=== PATIENT | female | born 1990 | race Caucasian/White ===

== ENCOUNTER 2017-03-27 19:48 | Inpatient (IN) | payer OTHER ==
[~2017-03-27] VITALS: Ht 162.6 cm; Wt 72.0 kg
[2017-03-27] MEDS ORDERED: ONDANSETRON 2MG/ML, 2ML ONE (20:10)
[2017-03-27] MEDS ORDERED: FAMOTIDINE 20 MG/2 ML ONE (20:10)
[2017-03-27 20:18] LABS: HEMATOCRIT 42.9 % (34.6-47.8); HEMOGLOBIN 14.5 g/dL (11.7-16.4); WHITE BLOOD COUNT 11.6 x10^3/uL (3.4-10)
[2017-03-27 20:28] LABS: ASPARTATE AMINO TRANSFERASE 10 U/L (15-37); BLOOD UREA NITROGEN 14 mg/dL (7-18)
[2017-03-27] MEDS ORDERED: ONDANSETRON 2MG/ML, 2ML IVPush ONE (20:30)
[2017-03-27] MEDS ORDERED: SODIUM CHLORIDE 0.9% 1,000ML IVBOLUS ONE (20:30)
[2017-03-27] MEDS ORDERED: SODIUM CHLORIDE FLUSH 10ML SYR IVF ONE (20:30)
[2017-03-27] MEDS ORDERED: FAMOTIDINE 20 MG/2 ML IVP ONE (20:30)
[2017-03-27 21:39] LABS: PATH.CAST-FLAG NOT PRESENT; SPERM-FLAG NOT PRESENT; SRC-FLAG NOT PRESENT; XTAL-FLAG NOT PRESENT; YLC-FLAG NOT PRESENT
[2017-03-27] MEDS ORDERED: HYDROmorphone 1 MG/ML, 1ML ONE (22:22)
[2017-03-27] MEDS ORDERED: ONDANSETRON 2MG/ML, 2ML IVPush PRN (22:30)
[2017-03-27] MEDS ORDERED: HYDROmorphone 1 MG/ML, 1ML IVPush PRN ×2 (22:30)
[2017-03-27] MEDS ORDERED: SODIUM CHLORIDE FLUSH 10ML SYR IVF PRN (22:30)
[2017-03-27 23:26] VITALS: BP 128/92
[2017-03-27 23:39] VITALS: BP 121/81
[2017-03-28 02:26] VITALS: BP 116/78
[2017-03-28 06:48] VITALS: BP 108/64
[2017-03-28] MEDS ORDERED: HYDROmorphone 1 MG/ML, 1ML ONE ×4 (06:51→20:12)
[2017-03-28] MEDS: LACTATED RINGERS 1,000 ML IV SCH ×2 (06:55→18:53)
[2017-03-28] MEDS: HYDROmorphone 2 MG/ML, 1ML IVPush PRN ×4 (06:55→20:17)
[2017-03-28] MEDS ORDERED: ONDANSETRON 2MG/ML, 2ML IVPush PRN ×3 (07:00→18:30)
[2017-03-28 12:12] VITALS: BP 114/79
[2017-03-28] MEDS ORDERED: EPINEPHRINE 1 MG/ML, 1ML ONE (15:25)
[2017-03-28] MEDS ORDERED: BUPIVACAINE/PF 0.5% ONE (15:25)
[2017-03-28] MEDS ORDERED: FENTANYL PF 100 MCG/2ML ONE ×3 (15:31→17:19)
[2017-03-28] MEDS ORDERED: MIDAZOLAM 1 MG/ML, 2ML ONE (15:32)
[2017-03-28] MEDS ORDERED: ONDANSETRON 2MG/ML, 2ML ONE ×3 (15:32→17:19)
[2017-03-28] MEDS ORDERED: ROCURONIUM 10 MG/ML ONE (15:32)
[2017-03-28] MEDS ORDERED: DEXAMETHASONE 4 MG/ML, 1ML ONE ×2 (15:32→15:37)
[2017-03-28] MEDS ORDERED: PROPOFOL 10 MG/ML, 20ML ONE (15:32)
[2017-03-28] MEDS ORDERED: SUCCINYLCHOLINE 20 MG/ML, 10ML ONE (15:32)
[2017-03-28] MEDS ORDERED: CEFOTETAN PMX 1GM/50ML 50 ML ONE (16:18)
[2017-03-28] MEDS ORDERED: KETOROLAC 30 MG/1 ML ONE (16:21)
[2017-03-28] MEDS ORDERED: ACETAMINOPHEN 325 MG TABLET PO PRN (16:30)
[2017-03-28] MEDS ORDERED: LABETALOL 5MG/ML, 20ML IV PRN (16:30)
[2017-03-28] MEDS ORDERED: MIDAZOLAM 1 MG/ML, 5ML IV PRN (16:30)
[2017-03-28] MEDS ORDERED: hydrALAzine 20 MG/ML, 1ML IV PRN (16:30)
[2017-03-28] MEDS ORDERED: OXYcodone 5 MG/5 ML ORAL.SOL UDC PO PRN (16:30)
[2017-03-28] MEDS ORDERED: FENTANYL PF 100 MCG/2ML IV PRN (16:30)
[2017-03-28] MEDS ORDERED: HYDROmorphone 1 MG/ML, 1ML IV PRN (16:30)
[2017-03-28] MEDS ORDERED: PROMETHAZINE 25 MG/ML, 1ML IV PRN (16:30)
[2017-03-28] MEDS ORDERED: MEPERIDINE/PF 25MG/0.5ML IVPush PRN (16:30)
[2017-03-28] MEDS ORDERED: ALBUTEROL SULFATE 2.5 MG/3 ML NPPB PRN (16:30)
[2017-03-28] MEDS ORDERED: GLYCOPYRROLATE 0.4 MG/2 ML, 2ML ONE (16:38)
[2017-03-28] MEDS ORDERED: NEOSTIGMINE 1 MG/ML, 10ML ONE (16:38)
[2017-03-28] MEDS ORDERED: NALOXONE 0.4 MG/ML, 1ML ONE (16:42)
[2017-03-28] MEDS ORDERED: OXYcodone/APAP 5/325MG TABLET PO PRN (18:30)
[2017-03-28 18:45] VITALS: BP 112/72
[2017-03-28] MEDS ORDERED: FLU VACC QS2017-18 (36MOS+) UP/PF 0.5 ML IM-VACC ONE (19:30)
[2017-03-28] MEDS ORDERED: PNEUMOCOCCAL 23 VACCINE IM-VACC ONE (19:30)
[2017-03-28 19:54] VITALS: BP 113/63
[2017-03-28] MEDS ORDERED: IBUP-1222 PO (20:22)
[2017-03-28] MEDS ORDERED: OXYC-306 PO (20:23)
== END 2017-03-28 21:28 | disposition home or self-care (01) | DRG 419 ==
LOC: ED 21:52 → EDIP 22:21 → 4NOR 23:21
PROVIDERS: ADMIT Surgery; ATTEND Surgery
PROC: 0FT44ZZ Resection of Gallbladder, Percutaneous Endoscopic Approach (ICD-10-PCS; principal; 2017-03-28 16:00)
DX: K80.01 Calculus of gallbladder with acute cholecystitis with obstruction (principal); M54.9 Dorsalgia, unspecified
CPT/HCPCS: 36415; 76700; 80053; 81001; 83690; 84703; 85025; 88304; 90686; 90732; 93005; 96361; 96374; 96375; J0171; J1100; J1170; J1885; J2250; J2310; J2405; J2704; J2710; J3010; J3490; J0330; J7030; J7120; S0028; S0074

== ENCOUNTER 2017-10-25 18:56 | Outpatient (CLI) | payer MEDICAID, OTHER ==
[~2017-10-25 18:56] MED LIST: IBUP-1222 PO; OXYC-306 PO
[2017-10-25 20:11] LABS: BASOPHILS # (AUTO) 0.02 x10^3/uL (0-0.1); BASOPHILS % (AUTO) 0 % (0-1); EOSINOPHILS # (AUTO) 0.33 x10^3/uL (0-0.4); EOSINOPHILS % (AUTO) 3 % (1-7); LYMPHOCYTES # (AUTO) 1.84 x10^3/uL (1-3.4); LYMPHOCYTES % (AUTO) 17 % (22-44); MD NO; MEAN CORPUSCULAR HEMOGLOBIN 31.2 pg (27.0-34.8); MEAN CORPUSCULAR HGB CONC 33.6 g/dL (32.4-35.8); MEAN CORPUSCULAR VOLUME 92.7 fL (80-100); MONOCYTES # (AUTO) 0.62 x10^3/uL (0.2-0.8); MONOCYTES % (AUTO) 6 % (2-9); NEUTROPHILS # (AUTO) 7.97 x10^3/uL (1.8-6.8); NEUTROPHILS % (AUTO) 74 % (42-75); PLATELET COUNT 221 x10^3/uL (130-400); RED BLOOD COUNT 3.83 x10^6/uL (3.82-5.3); RED CELL DISTRIBUTION WIDTH 13.2 % (9.6-15.2)
[2017-10-25 20:13] LABS: MICROSCOPIC NOT IND
[2017-10-25 20:25] LABS: AMPHETAMINE SCREEN, URINE Negative (Negative); BARBITURATE SCREEN, URINE Negative (Negative); BENZODIAZEPINE SCREEN, URINE Negative (Negative); CANNABINOID SCREEN, URINE Negative (Negative); COCAINE SCREEN, URINE Negative (Negative); METHADONE SCREEN, URINE Negative (Negative); OPIATE SCREEN, URINE Negative (Negative)
== END 2017-10-25 22:10 | disposition home or self-care (01) ==
LOC: LDOP 18:56
PROVIDERS: ATTEND Obstetrics & Gynecology
DX: O99.89 Other specified diseases and conditions complicating pregnancy, childbirth and the puerperium (principal); Z3A.28 28 weeks gestation of pregnancy; R10.9 Unspecified abdominal pain
CPT/HCPCS: 36415; 59025; 76805; 80307; 81003; 85025; 86592; 86762; 86803; 86850; 86900; 87086; 87340; 87491; 87591; 87806; 89060; 99211; G0463; G0475; Q0114

== ENCOUNTER 2020-06-26 16:09 | Emergency (ER) | payer SELFPAY ==
[~2020-06-26] VITALS: Ht 160 cm; Wt 71.8 kg
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
--- NOTE | 2020-06-26 16:48 | NUR ---
PATIENT AMBULATED TO BATHROOM WITH STEADY GAIT FOR URINE SAMPLE.
[2020-06-26 16:52] LABS: BASOPHILS % (AUTO) 1 % (0-1); EOSINOPHILS % (AUTO) 4 % (1-7); LYMPHOCYTES % (AUTO) 22 % (22-44); MEAN CORPUSCULAR HEMOGLOBIN 31.6 pg (27.0-34.8); MEAN CORPUSCULAR HGB CONC 34.7 g/dL (32.4-35.8); MEAN PLATELET VOLUME 9.3 fL (7.4-10.4); MONOCYTES % (AUTO) 5 % (2-9); NEUTROPHILS % (AUTO) 69 % (42-75); PLATELET COUNT 233 x10^3/uL (130-400); RED BLOOD COUNT 4.47 x10^6/uL (3.82-5.3); RED CELL DISTRIBUTION WIDTH 13.1 % (9.6-15.2)
[2020-06-26 16:55] LABS: MD NO
--- NOTE | 2020-06-26 16:57 | NUR ---
URINE SAMPLE COLLECTED AND WALKED TO LAB.
[2020-06-26 17:03] LABS: ALBUMIN 3.2 g/dL (3.4-5.0); ANION GAP 5 mmol/L (5-15); CALCIUM 8.5 mg/dL (8.5-10.1); CHLORIDE 108 mmol/L (98-107); CREATININE 0.63 mg/dL (0.55-1.02)
[2020-06-26 17:10] LABS: MICROSCOPIC AUTO
[2020-06-26 17:20] LABS: ALANINE AMINOTRANSFERASE 19 U/L (12-78); ALKALINE PHOSPHATASE 59 U/L (45-117); BILIRUBIN,TOTAL 0.3 mg/dL (0.2-1.0); TOTAL PROTEIN 7.1 g/dL (6.4-8.2)
--- NOTE | 2020-06-26 17:42 | NUR ---
ER RESIDENT STUDENT UPDATED PATIENT ON POC.
[2020-06-26] MEDS ORDERED: ONDANSETRON ODT 8 MG PO ONE (18:30)
[2020-06-26] MEDS ORDERED: ONDANSETRON ODT 4 MG ONE (18:36)
--- NOTE | 2020-06-26 19:52 | NUR ---
PATIENT RESTING IN [facility] ON PHONE, NADN, VSS, CALL LIGHT WITHIN REACH. PATIENT UP FOR RECHECK.
[2020-06-26 20:09] VITALS: BP 109/64
--- NOTE | 2020-06-26 20:11 | NUR ---
ERMD AT BEDSIDE TO DISCUSS TEST RESULTS AND POC.
--- NOTE | 2020-06-26 20:26 | NUR ---
Patient given discharge instructions and prescriptions and they have confirmed that they understand the instructions. Patient stable and ambulatory with steady gait from ED to private vehicle.
== END 2020-06-26 20:27 | disposition home or self-care (01) ==
LOC: ED 20:00
DX: O26.891 Other specified pregnancy related conditions, first trimester (principal); R10.2 Pelvic and perineal pain; R11.2 Nausea with vomiting, unspecified; Z3A.09 9 weeks gestation of pregnancy
CPT/HCPCS: 36415; 76801; 80053; 81001; 84702; 84703; 85025; 99284; Q0162

== ENCOUNTER 2020-07-23 03:21 | Emergency (ER) | payer SELFPAY ==
[~2020-07-23] VITALS: Ht 154.9 cm; Wt 72.3 kg
[~2020-07-23 03:21] MED LIST changes: -OXYC-306 PO; +OXYC1TAB17 PO
[2020-07-23] MEDS ORDERED: ACETAMINOPHEN 325 MG TABLET PO ONE (03:30)
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
--- NOTE | 2020-07-23 03:37 | NUR ---
[employer] here to speak with patient.
[2020-07-23] MEDS ORDERED: ACETAMINOPHEN 325 MG TABLET ONE (03:50)
[2020-07-23 03:51] LABS: BASOPHILS % (AUTO) 1 % (0-1); EOSINOPHILS % (AUTO) 3 % (1-7); LYMPHOCYTES % (AUTO) 22 % (22-44); MEAN CORPUSCULAR HGB CONC 34.9 g/dL (32.4-35.8); MONOCYTES % (AUTO) 5 % (2-9); NEUTROPHILS % (AUTO) 70 % (42-75); PLATELET COUNT 205 x10^3/uL (130-400); RED BLOOD COUNT 4.12 x10^6/uL (3.82-5.3); RED CELL DISTRIBUTION WIDTH 13.5 % (9.6-15.2)
--- NOTE | 2020-07-23 03:53 | NUR ---
MEDICATED PER EMAR, ULTRASOUND AT BEDSIDE
[2020-07-23 03:55] LABS: MD NO
[2020-07-23 04:00] LABS: ALANINE AMINOTRANSFERASE 18 U/L (12-78); ALBUMIN 3.2 g/dL (3.4-5.0); ANION GAP 9 mmol/L (5-15); CALCIUM 8.5 mg/dL (8.5-10.1); CHLORIDE 108 mmol/L (98-107); CREATININE 0.66 mg/dL (0.55-1.02)
[2020-07-23 04:18] LABS: ALKALINE PHOSPHATASE 48 U/L (45-117); BILIRUBIN,TOTAL 0.3 mg/dL (0.2-1.0); TOTAL PROTEIN 7.1 g/dL (6.4-8.2)
[2020-07-23 05:01] VITALS: BP 109/70
--- NOTE | 2020-07-23 05:02 | NUR ---
PT RESTING IN [facility], RESP EVEN/UNLABORED. PT ALREADY SPOKE WITH [employer] AND FILED REPORT, AWATING CT RESULTS
== END 2020-07-23 05:52 | disposition home or self-care (01) ==
LOC: ED 03:46
DX: O26.891 Other specified pregnancy related conditions, first trimester (principal); S16.1XXA Strain of muscle, fascia and tendon at neck level, initial encounter; G89.11 Acute pain due to trauma; R51.9 Headache, unspecified; R10.84 Generalized abdominal pain; R10.2 Pelvic and perineal pain; F17.210 Nicotine dependence, cigarettes, uncomplicated; Z90.49 Acquired absence of other specified parts of digestive tract; Z3A.12 12 weeks gestation of pregnancy; Y04.8XXA Assault by other bodily force, initial encounter; Y93.89 Activity, other specified; Y92.89 Other specified places as the place of occurrence of the external cause; Y99.8 Other external cause status
CPT/HCPCS: 36415; 70450; 72125; 76815; 80053; 84702; 85025; 86901; 99285; 99406